=== PATIENT | female | born 1990 | race Asian ===

== ENCOUNTER 2024-10-17 01:29 | Emergency (ER) | payer SELFPAY ==
[~2024-10-17] VITALS: Ht 167.6 cm; Wt 95.0 kg
[2024-10-17 01:40] VITALS: O2SAT 98
[2024-10-17 01:44] VITALS: TEMP 36.9; O2SAT 97
[2024-10-17] MEDS ORDERED: BENZ100C86 MT (04:43)
[2024-10-17] MEDS: ACETAMINOPHEN 325MG TABLET PO ONE (04:57)
[2024-10-17] MEDS: ONDANSETRON 4MG ODT PO ONE (04:58)
[2024-10-17 05:15] VITALS: BP 149/89; PULSE 75; RESP 18
== END 2024-10-17 05:15 | disposition home or self-care (01) ==
LOC: ER 01:29
DX: J06.9 Acute upper respiratory infection, unspecified (principal); B97.89 Other viral agents as the cause of diseases classified elsewhere; Z79.899 Other long term (current) drug therapy
CPT/HCPCS: 71045; 99283